=== PATIENT | male | born 1940 | race Caucasian/White ===

== ENCOUNTER 2016-03-26 09:55 | Outpatient (CLI) | payer MEDICARE, OTHER | END 2016-03-26 09:56 | disposition home or self-care (01) | DX: I10 Essential (primary) hypertension (principal); E78.5 Hyperlipidemia, unspecified; Z12.5 Encounter for screening for malignant neoplasm of prostate; I21.11 ST elevation (STEMI) myocardial infarction involving right coronary artery; K21.9 Gastro-esophageal reflux disease without esophagitis | CPT/HCPCS: 36415; 80053; 80061; 85025; G0103 ==

== ENCOUNTER 2016-04-14 10:25 | Outpatient (CLI) | payer MEDICARE | END 2016-04-14 10:26 | disposition home or self-care (01) | DX: M60.9 Myositis, unspecified (principal) ==

== ENCOUNTER 2016-04-21 08:00 | Outpatient (CLI) | payer MEDICARE | END 2016-04-21 23:59 | LOC: LAB.WCP 08:00 | PROVIDERS: ATTEND Family Medicine | DX: M60.9 Myositis, unspecified (principal) | CPT/HCPCS: 36415; 82550; 82553 ==

== ENCOUNTER 2016-05-15 10:50 | Outpatient (CLI) | payer MEDICARE | END 2016-05-15 10:51 | disposition home or self-care (01) | DX: E78.2 Mixed hyperlipidemia (principal) ==

== ENCOUNTER 2016-06-24 19:17 | Emergency (ER) | payer MEDICARE | END 2016-06-24 22:16 | disposition home or self-care (01) | DX: S01.01XA Laceration without foreign body of scalp, initial encounter (principal); W22.8XXA Striking against or struck by other objects, initial encounter; Y93.89 Activity, other specified; I10 Essential (primary) hypertension; Z95.5 Presence of coronary angioplasty implant and graft; Z79.02 Long term (current) use of antithrombotics/antiplatelets ==

== ENCOUNTER 2016-07-04 13:35 | Emergency (ER) | payer MEDICARE | END 2016-07-04 14:50 | disposition home or self-care (01) | DX: T81.33XA Disruption of traumatic injury wound repair, initial encounter (principal); S00.01XA Abrasion of scalp, initial encounter; W22.8XXA Striking against or struck by other objects, initial encounter; Y93.H2 Activity, gardening and landscaping; Y92.017 Garden or yard in single-family (private) house as the place of occurrence of the external cause; I10 Essential (primary) hypertension; Z87.442 Personal history of urinary calculi ==

== ENCOUNTER 2016-08-26 10:08 | Outpatient (CLI) | payer MEDICARE ==
[2016-08-26 13:27] LABS: CHOL/HDL RATIO 4.7 (<5.0); CHOLESTEROL 188 mg/dL; HDL CHOLESTEROL 40 mg/dL; LDL/HDL RATIO 3.2 (<3.6); TRIGLYCERIDES 102 mg/dL; VLDL CHOLESTEROL 20 mg/dL
== END 2016-08-26 10:09 | disposition home or self-care (01) ==
LOC: LAB.WCP 10:08
PROVIDERS: ATTEND Internal Medicine Cardiovascular Disease
DX: E78.2 Mixed hyperlipidemia (principal)
CPT/HCPCS: 36415; 80061

== ENCOUNTER 2017-06-10 08:00 | Outpatient (CLI) | payer MEDICARE ==
[2017-06-10 19:02] LABS: BASOPHILS % (AUTO) 0.8 %; EOSINOPHILS # (AUTO) 0.3 10^3/uL (0.0-0.7); EOSINOPHILS % (AUTO) 5.5 %; HGB - HEMOGLOBIN 14.5 g/dL (14.0-18.0); LYMPHOCYTES % (AUTO) 31.4 %; MEAN CORPUSCULAR HEMOGLOBIN 28.7 pg (27.0-31.0); MEAN CORPUSCULAR HGB CONC 33.9 g/dL (32.0-36.0); MEAN CORPUSCULAR VOLUME 84.8 fL (80.0-94.0); MEAN PLATELET VOLUME 9.2 fL (7.4-11.4); MONOCYTES # (AUTO) 0.6 10^3/uL (0.0-1.0); MONOCYTES % (AUTO) 9.4 %; NEUTROPHILS # (AUTO) 3.3 10^3/uL (1.5-6.6); NEUTROPHILS % (AUTO) 52.9 %; PLT - PLATELET COUNT 154 10^3/uL (130-450); RED BLOOD COUNT 5.03 10^6/uL (4.70-6.10); RED CELL DISTRIBUTION WIDTH 14.4 % (12.0-15.0); WHITE BLOOD COUNT 6.2 x10^3/uL (4.8-10.8)
[2017-06-10 19:20] LABS: ALBUMIN/GLOBULIN RATIO 1.4 (1.0-2.2); ALKALINE PHOSPHATASE 46 IU/L (42-121); ALT ALANINE AMINOTRANSFERASE 15 IU/L (10-60); AST ASPARTATE AMINOTRANSFERASE 18 IU/L (10-42); BILIRUBIN,TOTAL 1.6 mg/dL (0.2-1.0); BUN - BLOOD UREA NITROGEN 17 mg/dL (6-20); CALCIUM 9.6 mg/dL (8.5-10.3); CARBON DIOXIDE - CO2 29 mmol/L (21-32); CHLORIDE 103 mmol/L (101-111); CHOL/HDL RATIO 5.2 (<5.0); CHOLESTEROL 173 mg/dL; CREATININE 1.1 mg/dL (0.6-1.2); GFR - MDRD 65 (>89); GLUCOSE 128 mg/dL (70-100); HDL CHOLESTEROL 33 mg/dL; LDL CHOLESTEROL,CALCULATED 118 mg/dL; LDL/HDL RATIO 3.6 (<3.6); SODIUM 139 mmol/L (135-145); TOTAL PROTEIN 6.9 g/dL (6.7-8.2); VLDL CHOLESTEROL 22 mg/dL
[2017-06-10 19:26] LABS: HB2 TOTAL 15.9 g/dL; HEMOGLOBIN A1C 0.63 g/dL; HEMOGLOBIN A1C % 5.8 % (4.6-6.2)
== END 2017-06-10 08:01 | disposition home or self-care (01) ==
LOC: LAB.WCP 08:00
PROVIDERS: ATTEND Family Medicine
DX: I50.9 Heart failure, unspecified (principal); I25.10 Atherosclerotic heart disease of native coronary artery without angina pectoris; R73.09 Other abnormal glucose; E78.5 Hyperlipidemia, unspecified; I11.9 Hypertensive heart disease without heart failure
CPT/HCPCS: 36415; 80053; 80061; 83036; 83721; 83880; 85025

== ENCOUNTER 2017-12-30 10:49 | Outpatient (CLI) | payer MEDICARE ==
[2017-12-30 18:50] LABS: BASOPHILS % (AUTO) 0.5 %; EOSINOPHILS # (AUTO) 0.4 10^3/uL (0.0-0.7); HGB - HEMOGLOBIN 15.1 g/dL (14.0-18.0); LYMPHOCYTES # (AUTO) 1.5 10^3/uL (1.5-3.5); LYMPHOCYTES % (AUTO) 25.1 %; MEAN CORPUSCULAR HEMOGLOBIN 30.5 pg (27.0-31.0); MEAN CORPUSCULAR HGB CONC 35.3 g/dL (32.0-36.0); MEAN CORPUSCULAR VOLUME 86.5 fL (80.0-94.0); MEAN PLATELET VOLUME 8.6 fL (7.4-11.4); MONOCYTES # (AUTO) 0.6 10^3/uL (0.0-1.0); MONOCYTES % (AUTO) 9.5 %; NEUTROPHILS # (AUTO) 3.5 10^3/uL (1.5-6.6); NEUTROPHILS % (AUTO) 57.9 %; PLT - PLATELET COUNT 148 10^3/uL (130-450); RED BLOOD COUNT 4.94 10^6/uL (4.70-6.10); RED CELL DISTRIBUTION WIDTH 14.2 % (12.0-15.0)
[2017-12-30 19:13] LABS: ALBUMIN 4.1 g/dL (3.2-5.5); ALBUMIN/GLOBULIN RATIO 1.5 (1.0-2.2); ALKALINE PHOSPHATASE 54 IU/L (42-121); ALT ALANINE AMINOTRANSFERASE 14 IU/L (10-60); AST ASPARTATE AMINOTRANSFERASE 18 IU/L (10-42); BILIRUBIN,TOTAL 1.1 mg/dL (0.2-1.0); BUN - BLOOD UREA NITROGEN 15 mg/dL (6-20); CALCIUM 9.3 mg/dL (8.5-10.3); CARBON DIOXIDE - CO2 31 mmol/L (21-32); CHLORIDE 103 mmol/L (101-111); CHOL/HDL RATIO 4.7 (<5.0); CHOLESTEROL 183 mg/dL; CREATININE 0.8 mg/dL (0.6-1.2); GFR - MDRD 93 (>89); GLUCOSE 104 mg/dL (70-100); HDL CHOLESTEROL 39 mg/dL; LDL CHOLESTEROL,CALCULATED 128 mg/dL; LDL/HDL RATIO 3.3 (<3.6); SODIUM 140 mmol/L (135-145); TOTAL PROTEIN 6.9 g/dL (6.7-8.2); VLDL CHOLESTEROL 16 mg/dL
[2017-12-30 20:15] LABS: HB2 TOTAL 16.2 g/dL; HEMOGLOBIN A1C 0.62 g/dL; HEMOGLOBIN A1C % 5.7 % (4.6-6.2)
== END 2017-12-30 10:50 | disposition home or self-care (01) ==
LOC: LAB.WCP 10:49
PROVIDERS: ATTEND Family Medicine
DX: I10 Essential (primary) hypertension (principal); R73.09 Other abnormal glucose; E78.5 Hyperlipidemia, unspecified; I25.10 Atherosclerotic heart disease of native coronary artery without angina pectoris
CPT/HCPCS: 36415; 80053; 80061; 83036; 83721; 84443; 85025

== ENCOUNTER 2018-09-27 00:29 | Emergency (ER) | payer MEDICARE ==
[2018-09-27 00:41] VITALS: BP 173/90
--- NOTE | 2018-09-27 01:21 | ED Physician Documentation ---
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 He scraped at it and the site started bleeding immediately. The bleeding has since resolved. He denies history of similar symptoms in the past. He takes one baby aspirin daily. Review of Systems Constitutional: denies: Fever Respiratory: denies: Cough GI: denies: Abdominal Pain : reports: Other (Bleeding from skin on his scrotum.). denies: Dysuria, Discharge Musculoskeletal: denies: Back pain PD PAST MEDICAL HISTORY - Past Medical History Cardiovascular: Hypertension, [place] Respiratory: Asthma : Kidney stones Other Past Medical History: stent - Past Surgical History Past Surgical History: No - Present Medications Home Medications: Ambulatory Orders Medication Instructions Recorded Confirmed Carvedilol [Coreg] 6.25 mg PO DAILY 07/04/16 07/04/16 Cholecalciferol [Vitamin D3] 0 unit PO DAILY 07/04/16 07/04/16 Losartan [Cozaar] 100 mg PO DAILY 07/04/16 07/04/16 Aspirin 81 mg PO 09/27/18 09/27/18 - Allergies Allergies/Adverse Reactions: Allergies Allergy/AdvReac Type Severity Reaction Status Date / Time tetracycline HCl * Allergy Nausea Verified 09/27/18 00:38 [From Tetracyn] - Social History Does the pt smoke?: No Smoking Status: Never smoker Does the pt drink ETOH?: No Does the pt have substance abuse?: No - Immunizations Immunizations are current?: Yes PD ED PE NORMAL - Vitals Vital signs reviewed: Yes (hypertensive) - General General: Alert and oriented X 3, Well developed/nourished - HEENT HEENT: Atraumatic - Cardiac Cardiac: RRR - Respiratory Respiratory: No respiratory distress, Clear bilaterally - Abdomen Abdomen: Soft, Non tender - Male Male : Other (There is a vascular papilla on the scrotum and it has been hemorrhaging. The bleeding has currently resolved. There is no scrotal swelling, tenderness, or erythema.) - Derm Derm: No rash Results - Vitals Vitals: Oxygen O2 Source Room air PD MEDICAL DECISION MAKING - ED course Complexity details: re-evaluated patient, considered differential, d/w patient ED course: The patient's presentation is significant for a vascular papilla that had been hemorrhaging prior to arrival. The patient is not on anticoagulant medication except for one baby aspirin daily. Treatment in the emergency department included application of Gelfoam to the site, after which it was covered with a Band-Aid. He was observed in the emergency department for 15 minutes following the procedure, and there was no recurrent bleeding. I discussed with him appropriate wound care, as well as potentially worrisome signs or symptoms that should prompt reevaluation. Departure - Departure Disposition: 01 Home, Self Care Clinical Impression: Hemorrhage Condition: Stable Instructions: ED Abrasion Follow-Up: Collin Thomas MD [Primary Care Provider] - Comments: Leave the Dermabond in place until it sloughed soft on its own. Follow-up with your primary physician or return to the emergency department if you develop recurrent bleeding from your scrotum, or otherwise worsening symptoms. Discharge Date/Time: 09/27/18 01:31
== END 2018-09-27 01:31 | disposition home or self-care (01) ==
LOC: ED 00:29
DX: N50.1 Vascular disorders of male genital organs (principal); I10 Essential (primary) hypertension; Z79.82 Long term (current) use of aspirin
CPT/HCPCS: 99282; 99284

== ENCOUNTER 2019-01-24 09:30 | Outpatient (CLI) | payer MEDICARE ==
[2019-01-24 13:46] LABS: BASOPHILS % (AUTO) 0.5 %; EOSINOPHILS # (AUTO) 0.4 10^3/uL (0.0-0.7); EOSINOPHILS % (AUTO) 6.3 %; HGB - HEMOGLOBIN 15.2 g/dL (14.0-18.0); LYMPHOCYTES # (AUTO) 1.7 10^3/uL (1.5-3.5); LYMPHOCYTES % (AUTO) 29.6 %; MEAN CORPUSCULAR HEMOGLOBIN 30.3 pg (27.0-31.0); MEAN CORPUSCULAR HGB CONC 34.9 g/dL (32.0-36.0); MEAN CORPUSCULAR VOLUME 86.8 fL (80.0-94.0); MEAN PLATELET VOLUME 10.7 fL (7.4-11.4); MONOCYTES # (AUTO) 0.7 10^3/uL (0.0-1.0); MONOCYTES % (AUTO) 11.6 %; NEUTROPHILS # (AUTO) 2.9 10^3/uL (1.5-6.6); NEUTROPHILS % (AUTO) 51.6 %; PLT - PLATELET COUNT 159 10^3/uL (130-450); RED BLOOD COUNT 5.01 10^6/uL (4.70-6.10); RED CELL DISTRIBUTION WIDTH 13.2 % (12.0-15.0); WHITE BLOOD COUNT 5.6 x10^3/uL (4.8-10.8)
[2019-01-24 14:00] LABS: ALBUMIN/GLOBULIN RATIO 1.2 (1.0-2.2); ALKALINE PHOSPHATASE 45 IU/L (42-121); ALT ALANINE AMINOTRANSFERASE 14 IU/L (10-60); AST ASPARTATE AMINOTRANSFERASE 16 IU/L (10-42); BUN - BLOOD UREA NITROGEN 17 mg/dL (6-20); CALCIUM 9.6 mg/dL (8.5-10.3); CARBON DIOXIDE - CO2 30 mmol/L (21-32); CHLORIDE 104 mmol/L (101-111); CHOL/HDL RATIO 4.8 (<5.0); CHOLESTEROL 182 mg/dL; CREATININE 0.9 mg/dL (0.6-1.2); GFR - MDRD 81 (>89); GLUCOSE 127 mg/dL (70-100); HB2 TOTAL 15.2 g/dL; HDL CHOLESTEROL 38 mg/dL; HEMOGLOBIN A1C 0.57 g/dL; HEMOGLOBIN A1C % 5.6 % (4.6-6.2); LDL CHOLESTEROL,CALCULATED 127 mg/dL; LDL/HDL RATIO 3.3 (<3.6); SODIUM 141 mmol/L (135-145); TOTAL PROTEIN 7.3 g/dL (6.7-8.2); VLDL CHOLESTEROL 17 mg/dL
== END 2019-01-24 23:59 | disposition home or self-care (01) ==
LOC: LAB.WCP 09:30
PROVIDERS: ATTEND Family Medicine
DX: I25.10 Atherosclerotic heart disease of native coronary artery without angina pectoris (principal); I10 Essential (primary) hypertension; E78.6 Lipoprotein deficiency; R73.09 Other abnormal glucose
CPT/HCPCS: 36415; 80053; 80061; 82570; 83036; 83721; 84156; 84443; 85025

== ENCOUNTER 2019-02-18 07:00 | Outpatient (CLI) | payer MEDICARE | END 2019-02-18 23:59 | disposition home or self-care (01) | LOC: LAB.R 07:00 | PROVIDERS: ATTEND Physician Assistant | DX: R19.7 Diarrhea, unspecified (principal) | CPT/HCPCS: 81599; 87045; 87046; 87177; 87209; 87329; 87493 ==

== ENCOUNTER 2019-05-02 14:03 | Outpatient (CLI) | payer MEDICARE ==
--- NOTE | 2019-05-03 01:33 | XRAY Report ---
Reason: COUGH Procedure Date: 05/02/2019 Accession Number: [id number] / [id number] Procedure: WCP - Chest 2 View X-Ray CPT Code: 69197 Final Report FULL RESULT: EXAM: CHEST RADIOGRAPHY EXAM DATE: 05/02/2019 02:03 PM. CLINICAL HISTORY: COUGH. Congestion for 1 week. COMPARISON: None. TECHNIQUE: 2 views. FINDINGS: Lungs/Pleura: No focal opacities evident. No pleural effusion. No pneumothorax. Normal volumes. Mediastinum: Heart and mediastinal contours are unremarkable. Other: Moderate T7, T8 and T9 compression fracture deformities. Mild T10 and 11 compression deformities. These appear more chronic. Acute compression fractures are not excluded in the appropriate clinical setting. IMPRESSION: No acute cardiopulmonary disease seen. See above. RADIA
== END 2019-05-02 14:04 | disposition home or self-care (01) ==
LOC: DI.WCP 14:03
PROVIDERS: ATTEND Nurse Practitioner Family
DX: R05 Cough (principal)
CPT/HCPCS: 71046

== ENCOUNTER 2020-05-15 08:00 | Outpatient (CLI) | payer MEDICARE ==
[2020-05-15 18:10] LABS: BASOPHILS # (AUTO) 0.1 10^3/uL (0.0-0.1); EOSINOPHILS # (AUTO) 0.5 10^3/uL (0.0-0.7); EOSINOPHILS % (AUTO) 7.3 %; HCT - HEMATOCRIT 43.5 % (42.0-52.0); HGB - HEMOGLOBIN 14.8 g/dL (14.0-18.0); LYMPHOCYTES # (AUTO) 1.7 10^3/uL (1.5-3.5); MEAN CORPUSCULAR VOLUME 88.1 fL (80.0-94.0); MEAN PLATELET VOLUME 11.2 fL (7.4-11.4); MONOCYTES # (AUTO) 0.7 10^3/uL (0.0-1.0); MONOCYTES % (AUTO) 11.1 %; NEUTROPHILS # (AUTO) 3.4 10^3/uL (1.5-6.6); NEUTROPHILS % (AUTO) 53.4 %; PLT - PLATELET COUNT 155 10^3/uL (130-450); RED BLOOD COUNT 4.94 10^6/uL (4.70-6.10); RED CELL DISTRIBUTION WIDTH 13.3 % (12.0-15.0); WHITE BLOOD COUNT 6.3 x10^3/uL (4.8-10.8)
[2020-05-15 18:53] LABS: ALBUMIN/GLOBULIN RATIO 1.3 (1.0-2.2); ALKALINE PHOSPHATASE 46 IU/L (42-121); ALT ALANINE AMINOTRANSFERASE 13 IU/L (10-60); AST ASPARTATE AMINOTRANSFERASE 15 IU/L (10-42); BILIRUBIN,TOTAL 1.4 mg/dL (0.2-1.0); BUN - BLOOD UREA NITROGEN 17 mg/dL (6-20); CALCIUM 9.6 mg/dL (8.5-10.3); CARBON DIOXIDE - CO2 30 mmol/L (21-32); CHLORIDE 102 mmol/L (101-111); CHOL/HDL RATIO 4.5 (<5.0); CHOLESTEROL 194 mg/dL; GFR - MDRD 72 (>89); GLUCOSE 114 mg/dL (70-100); HDL CHOLESTEROL 43 mg/dL; LDL CHOLESTEROL,CALCULATED 137 mg/dL; LDL/HDL RATIO 3.2 (<3.6); POTASSIUM 3.7 mmol/L (3.5-5.0); SODIUM 141 mmol/L (135-145); TOTAL PROTEIN 7.2 g/dL (6.7-8.2); TRIGLYCERIDES 68 mg/dL; VLDL CHOLESTEROL 14 mg/dL
[2020-05-15 19:22] LABS: THYROID STIMULATING HORMONE 2.15 uIU/mL (0.34-5.60)
== END 2020-05-15 23:59 | disposition home or self-care (01) ==
LOC: LAB.WCP 08:00
PROVIDERS: ATTEND Internal Medicine
DX: I10 Essential (primary) hypertension (principal); E78.5 Hyperlipidemia, unspecified; R19.7 Diarrhea, unspecified
CPT/HCPCS: 36415; 80053; 80061; 83721; 84443; 85025

== ENCOUNTER 2020-06-11 08:00 | Outpatient (CLI) | payer MEDICARE | END 2020-06-11 23:59 | disposition home or self-care (01) | LOC: LAB.WCP 08:00 | PROVIDERS: ATTEND Internal Medicine | DX: Z01.84 Encounter for antibody response examination (principal); E55.9 Vitamin D deficiency, unspecified; J06.9 Acute upper respiratory infection, unspecified; I25.10 Atherosclerotic heart disease of native coronary artery without angina pectoris | CPT/HCPCS: 36415; 82306; 83735; 86769 ==

== ENCOUNTER 2021-03-28 08:00 | Outpatient (CLI) | payer MEDICARE ==
[2021-03-28 18:39] LABS: BASOPHILS # (AUTO) 0.1 10^3/uL (0.0-0.1); BASOPHILS % (AUTO) 0.7 %; EOSINOPHILS # (AUTO) 0.4 10^3/uL (0.0-0.7); EOSINOPHILS % (AUTO) 6.1 %; HCT - HEMATOCRIT 42.5 % (42.0-52.0); HGB - HEMOGLOBIN 14.9 g/dL (14.0-18.0); LYMPHOCYTES # (AUTO) 1.6 10^3/uL (1.5-3.5); LYMPHOCYTES % (AUTO) 23.1 %; MEAN CORPUSCULAR HEMOGLOBIN 30.6 pg (27.0-31.0); MEAN CORPUSCULAR HGB CONC 35.1 g/dL (32.0-36.0); MEAN CORPUSCULAR VOLUME 87.3 fL (80.0-94.0); MEAN PLATELET VOLUME 10.7 fL (7.4-11.4); MONOCYTES # (AUTO) 0.7 10^3/uL (0.0-1.0); MONOCYTES % (AUTO) 9.7 %; NEUTROPHILS # (AUTO) 4.1 10^3/uL (1.5-6.6); PLT - PLATELET COUNT 163 10^3/uL (130-450); RED BLOOD COUNT 4.87 10^6/uL (4.70-6.10); RED CELL DISTRIBUTION WIDTH 13.2 % (12.0-15.0); WHITE BLOOD COUNT 6.9 x10^3/uL (4.8-10.8)
[2021-03-28 19:03] LABS: CREATININE,URINE 170.7 mg/dL; MICROALBUM/CREATININE RATIO,UR 4.1 ug/mg (<30.0); MICROALBUMIN,URINE 0.7 mg/dL (0-300.0)
[2021-03-28 19:05] LABS: ALBUMIN 3.9 g/dL (3.2-5.5); ALBUMIN/GLOBULIN RATIO 1.2 (1.0-2.2); ALKALINE PHOSPHATASE 45 IU/L (42-121); ALT ALANINE AMINOTRANSFERASE 15 IU/L (10-60); AST ASPARTATE AMINOTRANSFERASE 17 IU/L (10-42); BILIRUBIN,TOTAL 1.5 mg/dL (0.2-1.0); BUN - BLOOD UREA NITROGEN 18 mg/dL (6-20); CALCIUM 9.9 mg/dL (8.5-10.3); CARBON DIOXIDE - CO2 31 mmol/L (21-32); CHLORIDE 103 mmol/L (101-111); CHOL/HDL RATIO 5.6 (<5.0); CHOLESTEROL 208 mg/dL; GFR - MDRD 72 (>89); GLUCOSE 116 mg/dL (70-100); HDL CHOLESTEROL 37 mg/dL; LDL CHOLESTEROL,CALCULATED 153 mg/dL; LDL/HDL RATIO 4.1 (<3.6); SODIUM 141 mmol/L (135-145); TOTAL PROTEIN 7.1 g/dL (6.7-8.2); TRIGLYCERIDES 89 mg/dL; VLDL CHOLESTEROL 18 mg/dL
[2021-03-28 21:04] LABS: ESTIMATED AVERAGE GLUCOSE 108 mg/dL (70-100); HEMOGLOBIN A1c% 5.4 % (4.27-6.07)
== END 2021-03-28 23:59 ==
LOC: LAB.WCP 08:00
PROVIDERS: ATTEND Internal Medicine
DX: I25.10 Atherosclerotic heart disease of native coronary artery without angina pectoris (principal); E55.9 Vitamin D deficiency, unspecified; R73.01 Impaired fasting glucose
CPT/HCPCS: 36415; 80053; 80061; 82043; 82306; 82570; 83036; 83721; 85025

== ENCOUNTER 2022-04-26 03:21 | Emergency (ER) | payer MEDICARE ==
--- NOTE | 2022-04-26 03:44 | ED Physician Documentation ---
PD HPI CHEST PAIN - Stated complaint Stated Complaint: CHEST PAIN - Chief complaint Chief Complaint: Cardiac - History obtained from History obtained from: Patient - History of Present Illness Timing - onset: How many hours ago (2-3) - Additional information Additional information: HPI from patient. Symptom onset 2-3 hours E D TECH while lying awake in bed. Patient states "felt like I had indigestion", with epigastric fullness/discomfort and chest pressure across anterior lower chest although predominantly midline. Symptoms improved with eructation. Past medical history includes coronary artery stent , approximately 5-6 years ago. Review of Systems Cardiac: reports: Chest pain / pressure. denies: Palpitations, Pedal edema, Calf pain Respiratory: reports: Reviewed and negative GI: reports: Abdominal Pain (epigastric discomfort/fullness). denies: Abdominal Swelling, Nausea, Vomiting, Constipation, Diarrhea PD PAST MEDICAL HISTORY - Past Medical History Cardiovascular: Hypertension, [place] Respiratory: Asthma : Kidney stones - Past Surgical History Past Surgical History: No - Present Medications Home Medications: Ambulatory Orders Medication Instructions Recorded Confirmed Carvedilol [Coreg] 6.25 mg PO DAILY 07/04/16 04/26/22 Cholecalciferol [Vitamin D3] 0 unit PO DAILY 07/04/16 04/26/22 Losartan [Cozaar] 100 mg PO DAILY 07/04/16 04/26/22 Aspirin 81 mg PO DAILY 09/27/18 04/26/22 - Allergies Allergies/Adverse Reactions: Allergies Allergy/AdvReac Type Severity Reaction Status Date / Time tetracycline HCl * Allergy Nausea Verified 04/26/22 03:32 [From Tetracyn] - Social History Does the pt smoke?: No Smoking Status: Never smoker Does the pt drink ETOH?: No Does the pt have substance abuse?: No - Immunizations Immunizations are current?: Yes PD ED PE NORMAL - Vitals Vital signs reviewed: Yes - General General: Alert and oriented X 3, No acute distress, Well developed/nourished - Cardiac Cardiac: RRR, No murmur, No gallop, No rub - Respiratory Respiratory: No respiratory distress, Clear bilaterally - Abdomen Abdomen: Normal bowel sounds, Soft, Non tender, Non distended - Extremities Extremities: No edema Results - Vitals Vitals: Oxygen O2 Source Room air - EKG (time done) #1 Rate: Rate (enter#) (65) Rhythm: NSR [place]: LAD, Anterior hemiblock Intervals: RBBB QRS: LVH Ischemia: Normal ST segments #2 Rate: Rate (enter#) (60) Rhythm: NSR [place]: LAD, Anterior hemiblock Intervals: Normal MS, RBBB QRS: LVH Ischemia: Normal ST segments - Labs Labs: Laboratory Tests 04/26/22 04/26/22 04/26/22 03:32 03:32 03:32 WBC 8.6 RBC 5.03 Hgb 15.5 Hct 44.4 MCV 88.3 MCH 30.8 MCHC 34.9 RDW 13.2 Plt Count 162 MPV 10.2 Neut # (Auto) 4.2 Lymph # (Auto) 2.7 [place] # (Auto) 1.1 H Eos # (Auto) 0.5 Baso # (Auto) 0.1 Absolute Nucleated RBC 0.00 Nucleated RBC % 0.0 Sodium 137 Potassium 3.6 Chloride 97 L Carbon Dioxide 29 Anion Gap 11.0 BUN 23 H Creatinine 1.1 Estimated GFR (MDRD) 64 L Glucose 136 H Calcium 10.0 Total Bilirubin 1.1 H AST 16 ALT 14 Alkaline Phosphatase 63 Troponin I High Sens 35.8 H* Total Protein 7.3 Albumin 4.1 Globulin 3.2 Albumin/Globulin Ratio 1.3 Lipase 66 H 04/26/22 05:25 WBC RBC Hgb Hct MCV MCH MCHC RDW Plt Count MPV Neut # (Auto) Lymph # (Auto) [place] # (Auto) Eos # (Auto) Baso # (Auto) Absolute Nucleated RBC Nucleated RBC % Sodium Potassium Chloride Carbon Dioxide Anion Gap BUN Creatinine Estimated GFR (MDRD) Glucose Calcium Total Bilirubin AST ALT Alkaline Phosphatase Troponin I High Sens 321.5 H* Total Protein Albumin Globulin Albumin/Globulin Ratio Lipase - Rads (name of study) chest xray Radiology: Prelim report reviewed, EMP read indepedently, See rad report PD Medical Decision Making - ED course Complexity details: reviewed old records, reviewed results, re-evaluated patient, considered differential, d/w patient ED course: Tests ordered and reviewed by me: CBC, ER abdominal panel, hs-cTn with 2-hour repeat, CXR, EKG with repeat (due to artifact in inferior leads on first EKG). No ST elevation nor depression on EKG. Patient's chest discomfort had resolved by the time of this evaluation, although he had ongoing mild epigastric discomfort and symptoms of "upset stomach" (per patient). On reevaluation after first hs-cTn, patient says he feels symptoms have nearly resolved with more eructation. He has mildly elevated hs-cTn (35.8), but given his h/o [place] with coronary artery stent, and considering his presenting symptoms included low anterior chest pressure, a second (two-hour) hs-cTn is performed. The result of this repeat test is 321.5, representing a 9-fold increase from the initial result. I reviewed these test results with patient and explained diagnosis of NSTEMI along with recommendation of transfer to appropriate facility with director process engineering on staff. Patient says his symptoms have completely resolved at this time and he requests discharge home. We discussed risks/benefits of transfer to inpatient setting at appropriate facility versus risks of going home at this time. Risks of going home discussed include permanent disability, p reventable sequellae of [place] (such as congestive heart failure), . Patient expresses understanding of risks/benefits discussion and signs AMA form and is discharged home per his request. Departure - Departure Disposition: 07 Against Medical Advice Clinical Impression: NSTEMI (non-ST elevated myocardial infarction) Condition: Good Instructions: Angina Unstable Comments: As we discussed, although there were no findings on your EKG that specifically indicate that you are having a heart attack, there were nonspecific abnormalities. More concerning with the results of your cardiac blood tests. The initial cardiac blood test (troponin) came back slightly elevated. This finding, in light of the chest discomfort described and considering your history of heart attack requiring a stent in your coronary artery, was concerning enough to prompt a second check of this blood test 2 hours after the first test. The second cardiac blood test level came back Significantly higher than the first result: It was 9 times higher than the initial test, which, as noted above, was already in an abnormally high range. This scenario typically is due to a blockage of the coronary artery without significant EKG changes. The treatment for this is to start several medications in the emergency department right away, including a blood thinning medication (heparin) given through the IV, And to transfer as soon as possible to another hospital that has the appropriate specialist (director process engineering) and the appropriate subsequent tests. You have elected to leave the emergency department at this time AGAINST MEDICAL ADVICE. Please return to the emergency department at any time you want to be reevaluated, particularly if your symptoms recur in any way. If you do need to return to the emergency department or go to an emergency department, I would recommend calling 911 if you are having any symptoms. Your initial troponin level was 35.8, and the repeat test two hours later was 321.5. The upper limit of the normal range for this test is 19.7. Discharge Date/Time: 04/26/22 07:15
[2022-04-26 03:45] LABS: BASOPHILS # (AUTO) 0.1 10^3/uL (0.0-0.1); BASOPHILS % (AUTO) 0.7 %; EOSINOPHILS # (AUTO) 0.5 10^3/uL (0.0-0.7); EOSINOPHILS % (AUTO) 5.7 %; HCT - HEMATOCRIT 44.4 % (42.0-52.0); HGB - HEMOGLOBIN 15.5 g/dL (14.0-18.0); LYMPHOCYTES # (AUTO) 2.7 10^3/uL (1.5-3.5); MEAN CORPUSCULAR HEMOGLOBIN 30.8 pg (27.0-31.0); MEAN CORPUSCULAR HGB CONC 34.9 g/dL (32.0-36.0); MEAN CORPUSCULAR VOLUME 88.3 fL (80.0-94.0); MEAN PLATELET VOLUME 10.2 fL (7.4-11.4); MONOCYTES # (AUTO) 1.1 10^3/uL (0.0-1.0); MONOCYTES % (AUTO) 13.2 %; NEUTROPHILS # (AUTO) 4.2 10^3/uL (1.5-6.6); NEUTROPHILS % (AUTO) 49.2 %; PLT - PLATELET COUNT 162 10^3/uL (130-450); RED BLOOD COUNT 5.03 10^6/uL (4.70-6.10); RED CELL DISTRIBUTION WIDTH 13.2 % (12.0-15.0); WHITE BLOOD COUNT 8.6 x10^3/uL (4.8-10.8)
[2022-04-26 04:00] LABS: ALBUMIN 4.1 g/dL (3.2-5.5); ALBUMIN/GLOBULIN RATIO 1.3 (1.0-2.2); BILIRUBIN,TOTAL 1.1 mg/dL (0.2-1.0); CREATININE 1.1 mg/dL (0.6-1.2); POTASSIUM 3.6 mmol/L (3.5-5.0); TOTAL PROTEIN 7.3 g/dL (6.7-8.2)
[2022-04-26 06:49] VITALS: BP 183/92
--- NOTE | 2022-04-26 09:58 | XRAY Report ---
PROCEDURE: Chest 1 View X-Ray INDICATIONS: Chest pain TECHNIQUE: One view of the chest was acquired. COMPARISON: None. FINDINGS: Surgical changes and devices: None. Lungs and pleura: No pleural effusions or pneumothorax. Lungs are clear. Mediastinum: Heart size enlarged. Mild vascular congestion present. Discharge Bones and chest wall: No suspicious bony lesions. Overlying soft tissues appear unremarkable. IMPRESSION: Alok and mild vascular congestion Reviewed by: Gabo Flaherty MD on 04/26/2022 8:57 AM [facility] Approved by: Gabo Flaherty MD on 04/26/2022 8:57 AM [facility] Station ID: [id number]
== END 2022-04-26 07:15 | disposition left against medical advice (07) ==
LOC: ED 03:21
DX: I21.4 Non-ST elevation (NSTEMI) myocardial infarction (principal); I25.2 Old myocardial infarction; Z95.818 Presence of other cardiac implants and grafts; I10 Essential (primary) hypertension
CPT/HCPCS: 36415; 80053; 83690; 84484; 85025; 93005; 99284

== ENCOUNTER 2022-08-27 09:05 | Outpatient (CLI) | payer MEDICARE ==
[2022-08-27 11:49] LABS: BASOPHILS % (AUTO) 0.6 %; EOSINOPHILS # (AUTO) 0.3 10^3/uL (0.0-0.7); EOSINOPHILS % (AUTO) 5.2 %; ESTIMATED AVERAGE GLUCOSE 111 mg/dL (70-100); HCT - HEMATOCRIT 39.4 % (42.0-52.0); HEMOGLOBIN A1c% 5.5 % (4.27-6.07); HGB - HEMOGLOBIN 13.8 g/dL (14.0-18.0); LYMPHOCYTES # (AUTO) 1.1 10^3/uL (1.5-3.5); LYMPHOCYTES % (AUTO) 17.8 %; MEAN CORPUSCULAR HEMOGLOBIN 30.3 pg (27.0-31.0); MEAN CORPUSCULAR VOLUME 86.4 fL (80.0-94.0); MEAN PLATELET VOLUME 10.7 fL (7.4-11.4); MONOCYTES # (AUTO) 0.6 10^3/uL (0.0-1.0); MONOCYTES % (AUTO) 9.4 %; NEUTROPHILS # (AUTO) 4.3 10^3/uL (1.5-6.6); PLT - PLATELET COUNT 141 10^3/uL (130-450); RED BLOOD COUNT 4.56 10^6/uL (4.70-6.10); RED CELL DISTRIBUTION WIDTH 13.1 % (12.0-15.0); WHITE BLOOD COUNT 6.4 x10^3/uL (4.8-10.8)
[2022-08-27 11:59] LABS: ALBUMIN 4.1 g/dL (3.2-5.5); ALBUMIN/GLOBULIN RATIO 1.5 (1.0-2.2); ALKALINE PHOSPHATASE 41 IU/L (42-121); ALT ALANINE AMINOTRANSFERASE 12 IU/L (10-60); AST ASPARTATE AMINOTRANSFERASE 18 IU/L (10-42); BILIRUBIN,TOTAL 1.5 mg/dL (0.2-1.0); BUN - BLOOD UREA NITROGEN 20 mg/dL (6-20); CALCIUM 9.7 mg/dL (8.5-10.3); CARBON DIOXIDE - CO2 30 mmol/L (21-32); CHLORIDE 105 mmol/L (101-111); CHOL/HDL RATIO 2.5 (<5.0); CHOLESTEROL 104 mg/dL; GFR - MDRD 71 (>89); GLUCOSE 126 mg/dL (70-100); HDL CHOLESTEROL 42 mg/dL; LDL CHOLESTEROL,CALCULATED 53 mg/dL; LDL/HDL RATIO 1.3 (<3.6); POTASSIUM 3.5 mmol/L (3.5-5.0); SODIUM 141 mmol/L (135-145); TOTAL PROTEIN 6.9 g/dL (6.7-8.2); TRIGLYCERIDES 47 mg/dL; VLDL CHOLESTEROL 9 mg/dL
[2022-08-27 12:05] LABS: CREATININE,URINE 243.5 mg/dL; MICROALBUM/CREATININE RATIO,UR 25.9 ug/mg (<30.0); MICROALBUMIN,URINE 6.3 mg/dL (0-300.0)
== END 2022-08-27 09:06 | disposition home or self-care (01) ==
LOC: LAB.N 09:05
PROVIDERS: ATTEND Internal Medicine
DX: E78.5 Hyperlipidemia, unspecified (principal); R73.01 Impaired fasting glucose; I22.0 Subsequent ST elevation (STEMI) myocardial infarction of anterior wall
CPT/HCPCS: 36415; 80053; 80061; 82043; 82570; 83036; 83721; 85025

== ENCOUNTER 2022-11-28 16:42 | Outpatient (CLI) | payer MEDICARE ==
[2022-11-28 21:17] LABS: POTASSIUM 3.7 mmol/L (3.5-4.5)
== END 2022-11-28 16:43 | disposition home or self-care (01) ==
LOC: LAB.N 16:42
PROVIDERS: ATTEND Internal Medicine
DX: I10 Essential (primary) hypertension (principal); E55.9 Vitamin D deficiency, unspecified
CPT/HCPCS: 36415; 80048; 82306

== ENCOUNTER 2023-03-14 21:33 | Emergency (ER) | payer MEDICARE ==
--- NOTE | 2023-03-15 00:08 | ED Physician Documentation ---
PD HPI UPPER EXT INJURY - Stated complaint Stated Complaint: L HAND LAC - Chief complaint Chief Complaint: Laceration - History obtained from History obtained from: Patient - History of Present Illness Location: Left - Additonal information Additional information: c/o left hand injury, chief concern is ongoing bleeding from the injury. Patient is right hand dominant. Today at approximately 3 PM, he accidentally struck his left hand with a hammer, causing skin tear. He had FROM of the left hand and does not have any bony pain. His only concern is that slow, steady oozing bleeding has been ongoing since the injury. He is uncertain when last tetanus booster was. Review of Systems Neurologic: denies: Focal weakness, Numbness PD PAST MEDICAL HISTORY - Past Medical History Past Medical History: Yes Cardiovascular: Hypertension, [place] Respiratory: Asthma : Kidney stones - Past Surgical History Past Surgical History: No - Present Medications Home Medications: Ambulatory Orders Medication Instructions Recorded Confirmed Cholecalciferol [Vitamin D3] 0 unit PO DAILY 07/04/16 04/26/22 Losartan [Cozaar] 100 mg PO DAILY 07/04/16 04/26/22 carvediloL [Coreg] 6.25 mg PO DAILY 07/04/16 04/26/22 Aspirin 81 mg PO DAILY 09/27/18 04/26/22 - Allergies Allergies/Adverse Reactions: Allergies Allergy/AdvReac Type Severity Reaction Status Date / Time tetracycline HCl * Allergy Nausea Verified 03/14/23 21:44 [From Tetracyn] - Social History Does the pt smoke?: No Smoking Status: Never smoker Does the pt drink ETOH?: No Does the pt have substance abuse?: No - Immunizations Immunizations are current?: Yes PD ED PE NORMAL - Vitals Vital signs reviewed: Yes - General General: Alert and oriented X 3, No acute distress, Well developed/nourished PD ED PE EXPANDED - Extremities KRISTOPHER UE/Hands Visual: 1 - laceration (skin tear "U"-shaped. no bony tenderness. There is slow, steady oozing bleeding from under the skin flap) Results - Vitals Vitals: Oxygen O2 Source Room air Procedures - Laceration (location) Upper extremity left Dorsal Length in cm: 1 Wound type: Curved Neurovascular status: Sensory intact Skin layer closure: Dermabond Other: Patient tolerated well, No complications, Tetanus booster given PD Medical Decision Making - ED course Complexity details: considered differential, d/w patient ED course: two layers of dermabond tissue adhesive used to tack-down the skin avulsion; this was done mainly to staunch the persistent bleeding from underneath this skin flap, as the skin flap itself is too thin to likely have adequate blood supply for viability. It is possible the skin flap does have adequate blood supply and does well; otherwise, it will eventually slough off and, by that nitin e, there should easily be good hemostasis of the underlying damaged vessels that are leaking Departure - Departure Disposition: 01 Home, Self Care Clinical Impression: Skin tear Condition: Good Instructions: ED Avulsion Dermal Forms: PCP List Discharge Date/Time: 03/15/23 00:58
[2023-03-15 01:05] VITALS: BP 105/53; O2SAT 98
== END 2023-03-15 00:58 | disposition home or self-care (01) ==
LOC: ED 21:33
DX: S61.412A Laceration without foreign body of left hand, initial encounter (principal); W22.8XXA Striking against or struck by other objects, initial encounter; I10 Essential (primary) hypertension
CPT/HCPCS: 12001; 99282

== ENCOUNTER 2023-07-09 10:12 | Outpatient (CLI) | payer MEDICARE ==
[2023-07-09 12:48] LABS: CHOL/HDL RATIO 2.2 (<5.0); CHOLESTEROL 105 mg/dL; HDL CHOLESTEROL 48 mg/dL; LDL CHOLESTEROL,CALCULATED 42 mg/dL; LDL/HDL RATIO 0.9 (<3.6); TRIGLYCERIDES 76 mg/dL (48-352); VLDL CHOLESTEROL 15 mg/dL
== END 2023-07-09 10:13 | disposition home or self-care (01) ==
LOC: LAB.N 10:12
PROVIDERS: ATTEND Internal Medicine Cardiovascular Disease
DX: I25.10 Atherosclerotic heart disease of native coronary artery without angina pectoris (principal)
CPT/HCPCS: 36415; 80061; 83721